=== PATIENT | female | born 1935 ===

== ENCOUNTER 2018-09-30 10:44 | Outpatient (CLI) | payer OTHER ==
[~2018-09-30] VITALS: Ht 149.9 cm; Wt 56.2 kg
== END 2018-09-30 11:00 | disposition home or self-care (01) ==
LOC: OFIC 805 10:44
DX: H90.42 Sensorineural hearing loss, unilateral, left ear, with unrestricted hearing on the contralateral side (principal); R42 Dizziness and giddiness; H61.23 Impacted cerumen, bilateral